=== PATIENT | male | born 1995 | race Caucasian/White ===

== ENCOUNTER 2022-01-17 18:03 | Emergency (ER) | payer BC, SELFPAY ==
[2022-01-17 18:55] VITALS: BP 141/71; PULSE 84; RESP 18; TEMP 36.7; O2SAT 99; BMI 40.7
[2022-01-17 19:30] LABS: Basophils Absolute Auto 0.03 K/uL (0.00-0.30); Basophils Percent Auto 0.4 % (0.0-3.0); Eosinophils Absolute Auto 0.12 K/uL (0.00-0.50); Eosinophils Percent Auto 1.4 % (0.0-7.0); Hematocrit 43.5 % (37.0-53.0); Hemoglobin* 14.9 gm/dL (13.5-17.5); Immature Granulocytes Abs Auto 0.01 K/uL (0.00-0.30); Lymphocytes Absolute Auto 1.87 K/uL (0.90-2.90); Lymphocytes Percent Auto 22.1 % (20-44); Mean Corpuscular HGB Conc 34 gm/dL (32-36); Mean Corpuscular Hemoglobin 29 pg (26-34); Mean Corpuscular Volume 85 fL (80-100); Monocytes Percent Auto 6.2 % (0.0-11.0); Neutrophils Percent Auto 69.8 % (42.0-72.0); Platelet Count* 169 K/uL (140-440); RDW Coefficient of Variation % 12.4 % (11.5-15.5); Red Blood Count 5.15 m/uL (4.30-5.90); White Blood Count* 8.45 K/uL (4.50-11.00)
[2022-01-17] MEDS: 0.9 % SODIUM CHLORIDE 1000 ml 1,000 ML IV (19:30)
[2022-01-17 19:37] LABS: Slide Review Reflex No
[2022-01-17 19:43] LABS: Albumin* 4.7 g/dL (3.3-5.0); Chloride* 104 mmol/L (96-114)
[2022-01-17 19:44] LABS: Potassium* 3.8 mmol/L (3.6-5.1); Sodium* 139 mmol/L (135-149)
[2022-01-17 19:46] LABS: Amylase* 59 U/L (18-89); Bilirubin Direct* 0.1 mg/dL (0.0-0.5); Bilirubin Total* 0.8 mg/dL (0.1-1.5); Carbon Dioxide* 24 mmol/L (20-32); Est. Creatinine Clearance* 125.02; Estimated Glomerular Filt Rate 108 ml/min; Total Protein* 7.7 g/dL (6.0-8.3)
[2022-01-17 19:47] LABS: Alanine Aminotransferase* 36 U/L (4-50); Alkaline Phosphatase* 95 U/L (40-150); Aspartate Amino Transferase* 24 U/L (12-35); Blood Urea Nitrogen* 16 mg/dL (5-24); Calcium* 9.2 mg/dL (8.4-10.6); Glucose* 104 mg/dL (60-115); Lipase* 77 U/L (23-300)
[2022-01-17 19:49] LABS: C Reactive Protein* 4.7 mg/dL (0.5-1.0)
--- NOTE | 2022-01-17 20:01 | ED.ABDPAIN ---
HPI - Abdominal Pain General Date Seen: 01/17/22 Chief Complaint: Unspecified Complaint, Adult Stated Complaint: TIGHTNESS IN CHEST,BACK PAIN,STOMACH PAIN Time Seen by Provider: 01/17/22 18:57 Source: patient and family Mode of arrival: ambulatory Limitations: no limitations History of Present Illness HPI narrative: Patient is delightful 26-year-old gentleman who presents here with abdominal pain. It comes and goes, intermittent, sometimes goes to his back, describes through his whole abdomen, and feels unwell. Currently really does not have any pain at all, but is here more at the prompting of his mother. Denies any diarrhea, if anything is been a little bit more constipated, no dysuria frequency, been a little bit nauseous when it is at its were thin seems to be related to eating some food. He noted it came on approximately 4 days ago, after he had a large caffeinated beverage in a fatty food. Since then it has been up and down he has not really been drinking any alcohol, and does not really drink a lot alcohol, is really cut down his caffeinated intake, and tried some Pepto-Bismol along with 1 dose of omeprazole. Family history of biliary colic, with his mom a at a young age have to have her gallbladder taken out. MD elicited complaint: abdominal pain Pertinent past history: none Onset (ago): day(s) Pain Consistency: intermittent and now resolved Location: diffuse Severity: moderate Quality: cramping and fullness Radiation: back Migration to: no migration Exacerbating factors: eating Relieving factors: nothing Associated symptoms: denies other symptoms Treatments prior to arrival: antacids Related Data Home Medications Medication Instructions Recorded Confirmed No Known Home Medications 01/17/22 01/17/22 Allergies Allergy/AdvReac Type Severity Reaction Status Date / Time No Known Drug Allergies Allergy Verified 01/17/22 19:34 Review of Systems Status of ROS Reports: 10 or more systems reviewed and unremarkable except as noted in History and below [facility] Medical History No significant past medical history Surgical History No significant past surgical history Social History Smoking Status: Never smoker Do you use any of these nicotine containing products: None Second hand tobacco smoke exposure: No How often do you have a drink containing alcohol: never How often do you have six or more drinks on one occasion: Never AUDIT-C Alcohol total score: 0 Non-prescribed substance use: denies use Exam Narrative: Exam Narrative: Patient is a very nice gentleman in no apparent distress, vital signs are reviewed, he is nontoxic in nature, TMs are normal bilaterally his oropharynx is normal is pupils equal round reactive to light and there is no scleral icterus noted on examination. Neck is supple, no meningismus, chest is clear by with no wheezing crackles noted, easy respirations with no splinting, heart sounds are normal, abdomen is entirely soft there is no guarding no past splenomegaly bowel sounds are normal, no CVA tenderness, negative Vivas sign, no right lower quadrant tenderness, no groin all tenderness, and normal male genitalia is appreciated skin reveals no petechiae or rashes, he moves all extremities independently and well, with normal power upper and lower, symmetrically normal. Const: Vital Signs, click to edit/add: Vital Signs - 24 hr 01/17/22 18:55 01/17/22 18:55 01/17/22 21:13 Temperature 98.0 F 98.0 F Pulse Rate [Right Pulse Oximeter] 84 79 Respiratory Rate 18 18 Respiratory Rate [ Back] 18 Respiratory Rate [ Chest] 18 Blood Pressure [Ri ght Upper Arm] 141/71 H 135/71 Pulse Oximetry 99 99 Oxygen Delivery Me thod Room Air Room Air 01/17/22 21:14 Temperature 98.0 F Pulse Rate [Right Pulse Oximeter] 79 Respiratory Rate 18 Respiratory Rate [ Back] Respiratory Rate [ Chest] Blood Pressure [Ri ght Upper Arm] 135/71 Pulse Oximetry Oxygen Delivery Me thod Documenting provider has reviewed patient's vital signs: yes Course Course Hospital Course: I discussed with coli did not see any evidence of a gallstone on my examination but he has a tough ultrasound due to his size. I think we can order an outpatient ultrasound, send the results to Dr. Kaur, who I think would be a good fit for him. Dr. Kaur does not have anything to after further at we will start him on Prilosec and they can consider doing endoscopy if he is ongoing symptoms. I am reassured by today's examination he is having absolutely no pain in his laboratory tests were also very reassuring. I through think that this is related to his gallbladder however possibly peptic ulcer type disease. I encouraged him to avoid caffeinated beverages, NSAIDs, and also alcohol Vital Signs Vital signs: Initial Vital Signs Temperature 98.0 F 01/17/22 18:55 Temperature Source Temporal Artery Scan 01/17/22 18:55 Pulse Rate 84 01/17/22 18:55 Respiratory Rate 18 01/17/22 18:55 Blood Pressure 141/71 H 01/17/22 18:55 Blood Pressure Mean 94 01/17/22 18:55 Blood Pressure Position Sitting 01/17/22 18:55 Pulse Oximetry 99 01/17/22 18:55 Oxygen Delivery Method 01/17/22 18:55 Vital Signs Temperature 98.0 F 01/17/22 18:55 Pulse Rate 84 01/17/22 18:55 Respiratory Rate 18 01/17/22 18:55 Blood Pressure 141/71 H 01/17/22 18:55 Pulse Oximetry 99 01/17/22 18:55 Oxygen Delivery Method 01/17/22 18:55 Temperature 98.0 F 01/17/22 21:14 Pulse Rate 79 01/17/22 21:14 Respiratory Rate 18 01/17/22 21:14 Blood Pressure 135/71 01/17/22 21:14 Pulse Oximetry 99 01/17/22 21:13 Oxygen Delivery Method 01/17/22 21:13 MDM - Abdominal Pain MDM Narrative Medical decision making narrative: During this evaluation of this patient I considered multiple differential diagnosis is which included the life-threatening such as appendicitis, aortic aneurysm, mesenteric ischemia, bowel perforation, volvulus, and bowel obstruction. Other differential diagnosis is include but are not limited to cholecystitis, pancreatitis, hepatitis, gastritis, GERD, diverticulitis, peptic ulcer disease, pyelonephritis/UTI, renal colic/stone, testicular torsion as well as other acute scrotal processes, inflammatory bowel disease, as well as other etiologies Differential Diagnosis Differential diagnosis: Likely abdominal pain, acute appendicitis, calculus of kidney and small bowel obstruction Medical Records Attestation: I reviewed the patient's medical records. Lab Data Attestation: I reviewed the patient's lab results. Labs: Lab Results 01/17/22 01/17/22 01/17/22 Range/Units 19:25 19:27 19:27 WBC 8.45 (4.50-11.00) K/uL RBC 5.15 (4.30-5.90) m/uL Hgb 14.9 (13.5-17.5) gm/dL Hct 43.5 (37.0-53.0) % MCV 85 (80-100) fL MCH 29 (26-34) pg MCHC 34 (32-36) gm/dL RDW Coeff of Kin 12.4 (11.5-15.5) % Plt Count 169 (140-440) K/uL Neut % (Auto) 69.8 (42.0-72.0) % Lymph % (Auto) 22.1 (20-44) % [place] % (Auto) 6.2 (0.0-11.0) % Eos % (Auto) 1.4 (0.0-7.0) % Baso % (Auto) 0.4 (0.0-3.0) % Neut # (Auto) 5.90 (1.7-7.0) K/uL Lymph # (Auto) 1.87 (0.90-2.90) K/uL [place] # (Auto) 0.50 (0.00-0.90) K/UL Eos # (Auto) 0.12 (0.00-0.50) K/uL Baso # (Auto) 0.03 (0.00-0.30) K/uL Abs Immat Gran (auto) 0.01 (0.00-0.30) K/uL Sodium 139 (135-149) mmol/L Potassium 3.8 (3.6-5.1) mmol/L Chloride 104 (96-114) mmol/L Carbon Dioxide 24 (20-32) mmol/L BUN 16 (5-24) mg/dL Creatinine 1.0 (0.5-1.5) mg/dL Estimated Creat Clear 125.02 Estimated GFR 108 ml/min Glucose 104 (60-115) mg/dL Calcium 9.2 (8.4-10.6) mg/dL Total Bilirubin 0.8 (0.1-1.5) mg/dL Direct Bilirubin 0.1 (0.0-0.5) mg/dL AST 24 (12-35) U/L ALT 36 (4-50) U/L Alkaline Phosphatase 95 (40-150) U/L C-Reactive Protein 4.7 H (0.5-1.0) mg/dL Total Protein 7.7 (6.0-8.3) g/dL Albumin 4.7 (3.3-5.0) g/dL Amylase 59 (18-89) U/L Lipase 77 (23-300) U/L Urine Color (Yellow) Urine Appearance (Clear) Urine pH (5.0-8.5) Ur Specific [place] (1.000-1.030) Urine Protein (Negative) Urine Glucose (UA) (Negative) Urine Ketones (Negative) Urine Blood (Negative) Urine Nitrite (Negative) Urine Bilirubin (Negative) Urine Urobilinogen (0.2-1.0) Ur Leukocyte Esterase (Negative) Urine RBC (0-2) Urine WBC (0-5) Ur Squamous Epith Cells (None-Few) Amorphous Sediment (None) Urine Bacteria (None) SARS-CoV-2 (PCR) (Negative) Influenza Type A (PCR) (Negative) Influenza Type B (PCR) (Negative) RSV (PCR) (Negative) POC Troponin I 0.00 L (0.01-0.04) ng/ml 01/17/22 01/17/22 Range/Units 19:27 20:12 WBC (4.50-11.00) K/uL RBC (4.30-5.90) m/uL Hgb (13.5-17.5) gm/dL Hct (37.0-53.0) % MCV (80-100) fL MCH (26-34) pg MCHC (32-36) gm/dL RDW Coeff of Kin (11.5-15.5) % Plt Count (140-440) K/uL Neut % (Auto) (42.0-72.0) % Lymph % (Auto) (20-44) % [place] % (Auto) (0.0-11.0) % Eos % (Auto) (0.0-7.0) % Baso % (Auto) (0.0-3.0) % Neut # (Auto) (1.7-7.0) K/uL Lymph # (Auto) (0.90-2.90) K/uL [place] # (Auto) (0.00-0.90) K/UL Eos # (Auto) (0.00-0.50) K/uL Baso # (Auto) (0.00-0.30) K/uL Abs Immat Gran (auto) (0.00-0.30) K/uL Sodium (135-149) mmol/L Potassium (3.6-5.1) mmol/L Chloride (96-114) mmol/L Carbon Dioxide (20-32) mmol/L BUN (5-24) mg/dL Creatinine (0.5-1.5) mg/dL Estimated Creat Clear Estimated GFR ml/min Glucose (60-115) mg/dL Calcium (8.4-10.6) mg/dL Total Bilirubin (0.1-1.5) mg/dL Direct Bilirubin (0.0-0.5) mg/dL AST (12-35) U/L ALT (4-50) U/L Alkaline Phosphatase (40-150) U/L C-Reactive Protein (0.5-1.0) mg/dL Total Protein (6.0-8.3) g/dL Albumin (3.3-5.0) g/dL Amylase (18-89) U/L Lipase (23-300) U/L Urine Color Yellow (Yellow) Urine Appearance Cloudy A (Clear) Urine pH 5.5 (5.0-8.5) Ur Specific [place] >= 1.030 (1.000-1.030) Urine Protein Negative (Negative) Urine Glucose (UA) Negative (Negative) Urine Ketones 1+ A (Negative) Urine Blood Negative (Negative) Urine Nitrite Negative (Negative) Urine Bilirubin 1+ A (Negative) Urine Urobilinogen 1.0 (0.2-1.0) Ur Leukocyte Esterase Negative (Negative) Urine RBC 0-2 (0-2) Urine WBC 0-2 (0-5) Ur Squamous Epith Cells None (None-Few) Amorphous Sediment Moderate A (None) Urine Bacteria None (None) SARS-CoV-2 (PCR) Negative SARS-CoV-2 (Negative) Influenza Type A (PCR) Negative PCR FLU A (Negative) Influenza Type B (PCR) Negative PCR FLU B (Negative) RSV (PCR) Negative PCR RSV (Negative) POC Troponin I (0.01-0.04) ng/ml ECG Data Attestation: I personally reviewed and interpreted this ECG as follows: ECG interpretation date: 01/17/22 Prior ECG tracings: not available for review Interpretation: Normal sinus rhythm with a ventricular rate of 91, no acute ST wave changes, QRS QT WV interval normal, there was an incomplete right bundle-branch block. Assessment: Normal EKG no acute ST wave changes. Discharge Plan Discharge Clinical Impression: Abdominal pain Patient Disposition: Home w/ Parent or Adult Condition: Improved Instructions: Abdominal Pain (ED) Additional Instructions: Home rest light fat-free diet, clear fluids, times 24 hours then increased. Would recommend that you take the omeprazole 20 mg a day, high but this a [employer] were [facility]. Take it for 3 weeks at a minimum. Follow-up with Dr. Kaur for your results of your ultrasound. And any further care. Call [phone] if no call by 11:00 in the morning He is an excellent doctor, increasing abdominal pain fevers chills and I would like you to come back to the emergency room to be res seen. Prescriptions: No Action No Known Home Medications Follow Up/Referrals: Rip Kaur MD [Staff Physician] - Provider,Not a Local [Primary Care Provider] - Stand Alone Forms: [employer] Info Instructions
[2022-01-17 20:08] LABS: PCR FLU A Negative PCR FLU A (Negative); PCR FLU B Negative PCR FLU B (Negative); PCR RSV Negative PCR RSV (Negative)
[2022-01-17 20:25] LABS: Appearance Urine Cloudy (Clear); Bilirubin Urine 1+ (Negative); Blood Urine Negative (Negative); Color Urine Yellow (Yellow); Glucose Urine Negative (Negative); Ketones Urine 1+ (Negative); Leukocyte Esterase Urine Negative (Negative); Nitrite Urine Negative (Negative); Protein Urine Negative (Negative); Specific Gravity Urine >= 1.030 (1.000-1.030); pH Urine 5.5 (5.0-8.5)
[2022-01-17 20:42] LABS: Amorphous Sediment Urine Moderate; RBC Urine 0-2 (0-2); WBC Urine 0-2 (0-5)
[2022-01-17] MEDS: PANTOPRAZOLE SODIUM 40 MG INJ IVP (20:51)
[2022-01-17 21:13] VITALS: BP 135/71; PULSE 79; RESP 18; TEMP 36.7; O2SAT 99
[2022-01-17 21:14] VITALS: BP 135/71; PULSE 79; RESP 18; TEMP 36.7
[2022-01-17 23:33] LABS: SARS PCR* Negative SARS-CoV-2 (Negative)
== END 2022-01-17 21:14 | disposition home or self-care (01) ==
PROVIDERS: Emergency Provider Family Medicine; PCP Family Medicine
DX: R10.84 Generalized abdominal pain (principal)
CPT/HCPCS: 36415; 80048; 80076; 81001; 82150; 83690; 84484; 85025; 86140; 87502; 87634; 87635; 93005; 96361; 96374; 99284; C9113; J7030

== ENCOUNTER 2022-01-18 10:59 | Outpatient (CLI) | payer BC, SELFPAY ==
--- NOTE | 2022-01-18 11:15 | CRLHL7_ITS ---
For Patients: As a result of the Century Cures Act, medical imaging exams and procedure reports are released immediately into your electronic medical record. You may view this report before your referring provider. If you have questions, please contact your health care provider. INDICATION: Biliary following COMPARISON: none TECHNIQUE: Real time odonnell scale imaging and color Doppler analysis was performed of the right upper quadrant. FINDINGS: The patient`s liver is of normal size and has uniform echogenicity. There is a normal appearance of the hepatic IVC and proximal abdominal aorta. There is no evidence of ascites. Gallbladder wall is thickened and measures 5 millimeters. Moderate layering sludge noted. Echogenic stone located within the gallbladder neck measuring 8 millimeters. The common bile duct is of normal size and measures 8 mm in diameter at the level of the tony hepatis. The pancreas appears mildly edematous. There is no evidence of a stone or hydronephrosis within the right kidney. The right kidney measures 12.8 cm in length. IMPRESSION: Moderate layering sludge in the gallbladder and 8 millimeter stone in the gallbladder neck along with gallbladder wall thickening suggesting acute cholecystitis. Dictated by Rip Barnett MD @ 01/18/2022 11:53:36 AM (Electronically Signed)
== END 2022-01-18 11:00 | disposition home or self-care (01) ==
LOC: US 11:00
PROVIDERS: PCP Family Medicine; Visit Provider Family Medicine
DX: K80.50 Calculus of bile duct without cholangitis or cholecystitis without obstruction (principal)
CPT/HCPCS: 76705

== ENCOUNTER 2022-01-18 12:15 | Day surgery (SDC) | payer BC, SELFPAY ==
[2022-01-18] VITALS (18 sets, daily range): BP systolic 107–151; BP diastolic 58–86; PULSE 80–96; RESP 14–20; TEMP 36.6–37.6; O2SAT 90–99; BMI 37.5
[2022-01-18 13:21] LABS: Basophils Absolute Auto 0.02 K/uL (0.00-0.30); Basophils Percent Auto 0.2 % (0.0-3.0); Eosinophils Percent Auto 1.1 % (0.0-7.0); Hemoglobin* 15.1 gm/dL (13.5-17.5); Immature Granulocytes Abs Auto 0.02 K/uL (0.00-0.30); Lymphocytes Percent Auto 15.3 % (20-44); Mean Corpuscular HGB Conc 34 gm/dL (32-36); Mean Corpuscular Hemoglobin 29 pg (26-34); Mean Corpuscular Volume 84 fL (80-100); Monocytes Percent Auto 6.9 % (0.0-11.0); Neutrophils Percent Auto 76.3 % (42.0-72.0); Platelet Count* 170 K/uL (140-440); RDW Coefficient of Variation % 12.3 % (11.5-15.5); Red Blood Count 5.24 m/uL (4.30-5.90); White Blood Count* 9.44 K/uL (4.50-11.00)
[2022-01-18] MEDS: LACTATED RINGERS 1000 ML 1,000 ML 100 ML IV (13:25)
[2022-01-18] MEDS: SODIUM CHLORIDE 0.9 % (FLUSH) 10 ML SYRINGE IVF (13:25)
[2022-01-18 13:26] LABS: Slide Review Reflex No
[2022-01-18] MEDS: ETHYL CHLORIDE 1 APPLICATION 1 APPLIC TOPICAL (13:26)
[2022-01-18 13:27] LABS: Albumin* 4.5 g/dL (3.3-5.0); Chloride* 101 mmol/L (96-114); Potassium* 4.2 mmol/L (3.6-5.1); Sodium* 138 mmol/L (135-149)
[2022-01-18 13:29] LABS: Amylase* 53 U/L (18-89); Carbon Dioxide* 26 mmol/L (20-32); Est. Creatinine Clearance* 136.14; Estimated Glomerular Filt Rate 108 ml/min
[2022-01-18 13:30] LABS: Alanine Aminotransferase* 32 U/L (4-50); Alkaline Phosphatase* 86 U/L (40-150); Aspartate Amino Transferase* 22 U/L (12-35); Bilirubin Direct* 0.2 mg/dL (0.0-0.5); Bilirubin Total* 1.4 mg/dL (0.1-1.5); Blood Urea Nitrogen* 12 mg/dL (5-24); Calcium* 9.1 mg/dL (8.4-10.6); Glucose* 108 mg/dL (60-115); Lipase* 47 U/L (23-300); Total Protein* 7.5 g/dL (6.0-8.3)
--- NOTE | 2022-01-18 13:33 | P.GSCN_ITS ---
History of Present Illness Consult details Date Seen: 01/18/22 Consult date: 01/18/22 Narrative: Patient presented to the emergency department last night for persistent epigastric abdominal pain. He states that it started on Friday evening after a large dinner. He has never had the pain before this event. It was associated with nausea and multiple emesis. On Friday he felt fatigued, within the pain partially subsided throughout the week. He had another episode of pain on Friday after a big steak dinner and beers. He describes the pain as being in the middle of his abdomen with some radiation to the back. Large meal seem to make the pain worse. Advil makes the pain better. He denies any fevers or chills. No diarrhea, but does report some mild constipation. He thinks his last bowel movement was yesterday. He has never had abdominal surgery before. There is a family history of gallbladder disease with his mom having hers removed in her 20's. Review of Systems Status of ROS: Reports: 10 or more systems reviewed and unremarkable except as noted in History and below [facility] Medical History No significant past medical history Surgical History No significant past surgical history Social History Smoking Status: Never smoker Do you use any of these nicotine containing products: None Second hand tobacco smoke exposure: No How often do you have a drink containing alcohol: monthly or less How often do you have six or more drinks on one occasion: Never AUDIT-C Alcohol total score: 1 Non-prescribed substance use: denies use Caffeine: Yes Meds Home Medications and Allergies Home Medications Medication Instructions Recorded Confirmed Type No Known Home Medications 01/17/22 01/17/22 History Allergies Allergy/AdvReac Type Severity Reaction Status Date / Time No Known Drug Allergies Allergy Verified 01/18/22 12:45 Exam Narrative: Exam Narrative: General: Alert and oriented, no acute distress. Respiratory: Equal breath rise bilaterally, maintained on room air. CV: Regular rhythm rate, well perfused Abdomen: Soft, mild tenderness to deep palpation with no guarding or rebound. Const: Vital Signs, click to edit/add: Vital Signs - 24 hr 01/18/22 12:56 Temperature 97.9 F Pulse Rate 88 Respiratory Rate 18 Blood Pressure 145/86 H Pulse Oximetry 99 Oxygen Delivery Me thod Room Air Results Labs Labs: Abnormal lab results 01/18/22 Range/Units 13:10 Neut % (Auto) 76.3 H (42.0-72.0) % Lymph % (Auto) 15.3 L (20-44) % Neut # (Auto) 7.20 H (1.7-7.0) K/uL Diabetes panel 01/18/22 Range/Units 13:10 Sodium 138 (135-149) mmol/L Potassium 4.2 (3.6-5.1) mmol/L Chloride 101 (96-114) mmol/L Carbon Dioxide 26 (20-32) mmol/L BUN 12 (5-24) mg/dL Creatinine 1.0 (0.5-1.5) mg/dL Glucose 108 (60-115) mg/dL Calcium 9.1 (8.4-10.6) mg/dL AST 22 (12-35) U/L ALT 32 (4-50) U/L Alkaline Phosphatase 86 (40-150) U/L Total Protein 7.5 (6.0-8.3) g/dL Albumin 4.5 (3.3-5.0) g/dL Calcium panel 01/18/22 Range/Units 13:10 Calcium 9.1 (8.4-10.6) mg/dL Albumin 4.5 (3.3-5.0) g/dL Pituitary panel 01/18/22 Range/Units 13:10 Sodium 138 (135-149) mmol/L Potassium 4.2 (3.6-5.1) mmol/L Chloride 101 (96-114) mmol/L Carbon Dioxide 26 (20-32) mmol/L BUN 12 (5-24) mg/dL Creatinine 1.0 (0.5-1.5) mg/dL Glucose 108 (60-115) mg/dL Calcium 9.1 (8.4-10.6) mg/dL Adrenal panel 01/18/22 Range/Units 13:10 Sodium 138 (135-149) mmol/L Potassium 4.2 (3.6-5.1) mmol/L Chloride 101 (96-114) mmol/L Carbon Dioxide 26 (20-32) mmol/L BUN 12 (5-24) mg/dL Creatinine 1.0 (0.5-1.5) mg/dL Glucose 108 (60-115) mg/dL Calcium 9.1 (8.4-10.6) mg/dL Total Bilirubin 1.4 (0.1-1.5) mg/dL AST 22 (12-35) U/L ALT 32 (4-50) U/L Alkaline Phosphatase 86 (40-150) U/L Total Protein 7.5 (6.0-8.3) g/dL Albumin 4.5 (3.3-5.0) g/dL All other labs normal. Imaging Abdominal ultrasound report/results: report reviewed and image reviewed Assessment and Plan Assessment and plan (1) Acute cholecystitis: Status: Acute Plan Patient is an otherwise healthy 26-year-old male presents with clinical findings and workup consistent with acute cholecystitis. On ultrasound imaging there is an edematous gallbladder wall and stone that appears lodged within the gallbladder neck. Labs are all within normal limits, including bilirubin and lipase. Low concern at this time for choledocholithiasis or associated pancreatitis. I had a detailed conversation with the patient regarding the diagnosis of acute cholecystitis. We discussed the treatment options including observation with diet modification and laparoscopic cholecystectomy. We discussed the risks of surgery (including but not limited to) the risks of bleeding, infection, injury to other structures in the abdomen including bile duct injury, bile leak and conversion to an open operation. We discussed the possibility that the patient's pain not improve with surgery. We discussed the possibility of permanent post-operative diarrhea that may require medical management. Additionally, the conceivably of complications requiring additional surgery or further hospitalization were also discussed including the risks of RI, respiratory failure, stroke and blood clots. The patient voiced an understanding of our conversation, had the opportunity to ask questions, agreed to accept the risks of surgery and asked that we proceed with surgery.
[2022-01-18] MEDS: BUPIVACAINE 0.5% 30 ML INJECTION (17:03)
--- NOTE | 2022-01-18 17:22 | P.GSOP_ITS ---
Operative Note Date of procedure: 01/18/22 Type of Procedure: Laparoscopic cholecystectomy Procedure Description: After discussing the risks and benefits of the procedure, the patient signed informed consent.? The operative site was marked and the patient was brought to the operating room and placed on the operating table in supine position.? Care was taken to pad the patient's pressure points.?? The patient was then intubated by anesthesia.?? The operative site was then prepped and draped in the usual sterile fashion.? A time-out was then performed. Entrance to the abdomen was gained via a 5 mm Visiport in the left upper quadrant. The abdomen was insufflated and briefly surveyed for signs of injury. There was none. 11 mm umbilical port was placed as well as 2 working ports along the right costal margin. Patient was then placed in reverse Trendelenburg position with the right side up. The gallbladder had a significant amount of omental adhesions and was difficult to visualize. These were bluntly dissected down in the fundus visualized. The fundus was hemorrhagic, distended, edematous and difficult to grasp. A laparoscopic needle was brought onto the field and 70 mL of clear mucus fluid removed. Findings were consistent with hydrops. Once t he fluid was removed the fundus was grasped and retracted cephalad. There was a significant amount of omental adhesions that were needed to be dissected away and freed from the gallbladder. Additionally, at the infundibulum the duodenum was adhered with inflammatory attachments. These were carefully dissected away, taking care not to injure the associated duodenum. Once the duodenum was swept away the infundibulum was grasped. This was made very difficult secondary to the edematous and hemorrhagic tissue. Portions of the gallbladder also appeared partially necrotic. The gallbladder infundibulum itself was retracted into the liver bed and towards the falciform. Cautery was used to incise the surrounding peritoneum, which was bluntly dissected down. This allowed the infundibulum to be grasped and retracted. A significant amount of blunt dissection was used to identify the cystic duct and artery. There was a thick inflammatory rind that was carefully peeled away. The cystic artery was circumferentially dissected out. Just inferior to that was the cystic duct, which was also circumferentially dissected out with blunt dissection and cautery. The gallbladder was dissected off the cystic plate to achieve the critical view. Once this was achieved the cystic duct and artery were each clipped with 2 clips proximally and 1 clip distally and transected with the scissors. The gallbladder was then taken off of the liver bed. There was a point of arterial bleeding from the liver bed that was encountered. This was controlled with 5 mm clips. Once the gallbladder was completely taken off the liver bed it was removed from the abdomen using an Endo-Catch bag. The gallbladder bed was surveyed for hemostasis. The ports were then removed under direct vision. The umbilical port fascia was closed with 0 Vicryl. The skin was closed with absorbable subcuticular suture. Instrument sponge and needle counts were correct at the end of the case. The patient was then woken and transferred to the PACU in stable condition. Findings: Hydrops of the gallbladder with associated necrosis. Modifier 22 added to the case secondary to difficulty. Anesthesia: GETA Surgeon: Flor Connell MD Estimated blood loss (mL): 100 Condition: stable Disposition: PACU
--- NOTE | 2022-01-18 17:53 | W.ANESCHARGE ---
Anesthesia Charges Start Date/Time Anesthesia Start Date: 01/18/22 Anesthesia Start Time: 13:54 Stop Date/Time Anesthesia Stop Date: 01/18/22 Anesthesia Stop Time: 17:25 Summary Emergency: Yes
[2022-01-18] MEDS: LACTATED RINGERS 1000 ML 1,000 ML 125 ML IV (20:11)
[2022-01-18] MEDS: KETOROLAC 15 MG/ML inj IVP (23:22)
[2022-01-19] VITALS: BP 123/71; PULSE 89; RESP 18; TEMP 36.9; O2SAT 97
[2022-01-19 03:00] VITALS: BP 119/60; PULSE 81; RESP 18; TEMP 36.8; O2SAT 99
[2022-01-19] MEDS: LACTATED RINGERS 1000 ML 1,000 ML 125 ML IV (03:03)
[2022-01-19] MEDS: OXYCODONE 5 MG TABLET PO ×2 (03:03→09:16)
--- NOTE | 2022-01-19 06:09 | PC.NURSE ---
Shift 7p-7a: Pt. AOx4, following commands, VSS on RA. Pt. ambulating w/o difficulty, ambulated w/ SBA to toilet, voiding well, UOP adequate. Pt. received PRN Toradol and oxycodone for pain management, rates pain 3/10 this morning. Pt. receiving LR @125mL/hr, SCD's in place, pt. using IS independently when awake. Abdominal lap sites x4 C/D/I with surgical glue. Plan for mobility today with more ambulation. Pt. tolerated snacks w/o N/V, advanced diet to regular this AM. No complaints/issues at this time, pt. is resting comfortably
[2022-01-19 08:30] VITALS: BP 132/78; PULSE 83; RESP 18; TEMP 37; O2SAT 98
[2022-01-19 09:00] VITALS: PULSE 83; RESP 18
--- NOTE | 2022-01-19 10:45 | PM.DS1 ---
DS: Providers Provider Date Seen: 01/19/22 Primary care physician: Rip Kaur MD Attending Physician on discharge: Flor Connell MD DS: Summary Hospital Course Hospital Course: Patient presented to the emergency department with persistent right upper quadrant abdominal pain. Workup was obtained with clinical symptoms and findings consistent with acute cholecystitis. Patient underwent laparoscopic cholecystectomy and did well postoperatively. On postop day 1 he was tolerating regular diet, pain was well controlled and he was ambulating independently. Status at Discharge Functional status at discharge: independent ambulation Overall status at discharge: patient is progressing back to baseline Time Spent with Patient Time attestation: Total time spent providing and/or coordinating discharge services: Exam Narrative: Exam Narrative: General: Alert and oriented, no acute distress. Nontoxic in appearance. Respiratory: Equal breath rise bilaterally, maintained on room air CV: Regular rhythm rate Abdomen: Soft, nondistended, appropriately tender over incision sites. Const: Vital Signs, click to edit/add: Vital Signs - 24 hr 01/18/22 12:56 01/18/22 17:22 01/18/22 17:25 Temperature 97.9 F 99.7 F H 99.7 F H Pulse Rate 88 92 96 Pulse Rate [Pulse Oximeter] Respiratory Rate 18 19 15 Blood Pressure 145/86 H 131/74 124/74 Blood Pressure [Le ft Arm] Pulse Oximetry 99 94 91 Oxygen Delivery Me thod Room Air Room Air 01/18/22 17:30 01/18/22 17:35 01/18/22 17:40 Temperature 99.7 F H 99.7 F H 99.7 F H Pulse Rate 82 95 93 Pulse Rate [Pulse Oximeter] Respiratory Rate 18 14 20 Blood Pressure 123/58 L 121/71 135/71 Blood Pressure [Le ft Arm] Pulse Oximetry 90 95 95 Oxygen Delivery Me thod 01/18/22 17:45 01/18/22 17:50 01/18/22 18:00 Temperature 99.7 F H 99 F 98.4 F Pulse Rate 87 88 80 Pulse Rate [Pulse Oximeter] Respiratory Rate 14 16 18 Blood Pressure 143/79 H 151/64 H Blood Pressure [Le ft Arm] 126/74 Pulse Oximetry 95 96 Oxygen Delivery Me thod Room Air 01/18/22 17:21 01/18/22 18:15 01/18/22 19:00 Temperature 97.9 F 97.9 F 97.8 F Pulse Rate Pulse Rate [Pulse Oximeter] Respiratory Rate 18 18 18 Blood Pressure Blood Pressure [Le ft Arm] 120/63 127/61 115/78 Pulse Oximetry 93 97 95 Oxygen Delivery Me thod Room Air Room Air Room Air 01/18/22 18:45 01/18/22 19:30 01/18/22 19:00 Temperature 98 F 98.6 F 98.6 F Pulse Rate Pulse Rate [Pulse Oximeter] 81 81 Respiratory Rate 18 18 18 Blood Pressure Blood Pressure [Le ft Arm] 122/61 123/69 123/69 Pulse Oximetry 97 97 97 Oxygen Delivery Me thod Room Air Room Air Room Air 01/18/22 23:00 01/18/22 20:00 01/18/22 21:00 Temperature 98.6 F 98.4 F Pulse Rate Pulse Rate [Pulse Oximeter] 91 90 90 Respiratory Rate 18 18 18 Blood Pressure Blood Pressure [Le ft Arm] 126/73 107/62 Pulse Oximetry 96 97 Oxygen Delivery Me od Room Air Room Air 01/18/22 23:53 01/18/22 23:00 01/18/22 23:00 Temperature 98.4 F 98.7 F 98.7 F Pulse Rate Pulse Rate [Pulse Oximeter] 94 87 87 Respiratory Rate 18 18 18 Blood Pressure Blood Pressure [Le ft Arm] 126/70 128/74 128/74 Pulse Oximetry 98 97 97 Oxygen Delivery Me od Room Air Room Air Room Air 01/19/22 00:00 01/19/22 03:00 01/19/22 08:30 Temperature 98.4 F 98.3 F 98.6 F Pulse Rate Pulse Rate [Pulse Oximeter] 89 81 83 Respiratory Rate 18 18 18 Blood Pressure Blood Pressure [Le ft Arm] 123/71 119/60 132/78 Pulse Oximetry 97 99 98 Oxygen Delivery Pa thod Room Air Room Air Room Air DS: Data Data Completed and Pending Labs on day of discharge: Labs from last 24 hours 01/18/22 01/18/22 13:10 13:10 WBC 9.44 RBC 5.24 Hgb 15.1 Hct 44.0 MCV 84 MCH 29 MCHC 34 RDW Coeff of Kin 12.3 Plt Count 170 Neut % (Auto) 76.3 H Lymph % (Auto) 15.3 L [place] % (Auto) 6.9 Eos % (Auto) 1.1 Baso % (Auto) 0.2 Neut # (Auto) 7.20 H Lymph # (Auto) 1.40 [place] # (Auto) 0.70 Eos # (Auto) 0.10 Baso # (Auto) 0.02 Abs Immat Gran (auto) 0.02 Sodium 138 Potassium 4.2 Chloride 101 Carbon Dioxide 26 BUN 12 Creatinine 1.0 Estimated Creat Clear 136.14 Estimated GFR 108 Glucose 108 Calcium 9.1 Total Bilirubin 1.4 Direct Bilirubin 0.2 AST 22 ALT 32 Alkaline Phosphatase 86 Total Protein 7.5 Albumin 4.5 Amylase 53 Lipase 47 Discharge Plan Discharge Disposition: Home, Self-Care Discharging Surgeon: Flor Connell Follow-Up Appointment: 2 week follow-up Prescriptions: New oxycodone 5 mg tablet 5 mg PO Q6H PRN (Reason: pain) Qty: 15 0RF senna 8.6 mg capsule 8.6 mg PO DAILY PRN (Reason: constipation) Qty: 90 0RF Rx Instructions: Please take stool softeners while on narcotic pain medicine. Stop if having greater than 2 bowel movements per day. Activity Level: Activity as Tolerated Activity Detail: Activity as tolerated. Avoid strenuous activity. No lifting greater than 20 lb for 2 weeks. Discharge Diet: Regular and Low Fat/Low Cholesterol Diet Detail: Low-fat Patient Instructions: Laxative, Stimulant (By mouth), Oxycodone, Rapid Release (By mouth), Surgical Site Infections (DC), General Anesthesia (DC), Laparoscopic Cholecystectomy (DC), Post-Operative Instructions: Laparoscopic Cholecystectomy Additional Instructions: Okay to shower starting tomorrow, no swimming in a pool or bathing for 2 weeks. Forms: Work/Release Restrictions Follow-up: Flor Connell MD [Staff Physician] - 01/28/22 2:30 pm (Post OP- with Dr. De Guzman one of [facility]) Rip Kaur MD [Primary Care Provider] - Discharge Orders: Discharge Order (Routine); Ordered 01/19/22 Ordered By: Flor Connell
--- NOTE | 2022-01-19 11:56 | PC.NURSE ---
VSS AND AFEBRILE. TOLERATING REGULAR DIET WITH NO C/O N/V. LAP SITES x4 INTACT. SL DC'D. REVIEWED DC INSTRUCTIONS WITH PATIENT AND HE DENIES ANY QUESTIONS OR CONCERNS. PATIENT DC'D HOME VIA FAMILY.
== END 2022-01-19 11:45 | disposition home or self-care (01) ==
LOC: OR 17:28 → MEDSURG 18:03
PROVIDERS: Family Medicine; PCP Family Medicine; Visit Provider Surgery
PROC: 0FT44ZZ Resection of Gallbladder, Percutaneous Endoscopic Approach (ICD-10-PCS; CPT 47562; principal; 2022-01-18 12:45)
DX: K80.12 Calculus of gallbladder with acute and chronic cholecystitis without obstruction (principal); K82.1 Hydrops of gallbladder
CPT/HCPCS: 47562; 36415; 790; 80048; 80076; 82150; 83690; 85025; 88304; 99140; A9270; J1170; J1885; J2250; J2405; J2543; J2704; J3010; J3490; J7120

== ENCOUNTER 2024-05-01 20:32 | Emergency (ER) | payer BC, SELFPAY ==
--- OUTSIDE RECORDS SUMMARY | 2024-05-01 20:35 | XMS_ITS | Clinical Summary ---
Author Organization [facility] Address [address] [place] [address] [address] [place] [address] Care Team Providers Care Buzzsaw Operator Helper Name Role Phone Pcp, No MD Primary Care Provider Unavailabl e Provider, No Attributed RESOURCE Unavailable Unavailable Allergies No known active allergies Medications HYDROcodone-acet aminophen (NORCO) 5-325 mg tabletIndication s:Closed fracture of ankle, unspecified laterality, initial encounter Take 1-2 tablets by mouth every 4 to 6 hours as needed for moderate pain Not to exceed 10 tablets per day 20 tablet 9 Active Active Problems No known active problems Immunizations Immunization Administration Dates Next Due DTaP 01/18/2002, 9,02/09/1998,1997,0 1997 HIB,unspecified 1997 HIB-HEP B 02/09/1998,1997 MMR 01/18/2002,11/14/1998 Meningococcal MCV4P (Menactra) 08/10/2009 Meningococcal MPSV4 (Menomune) 08/10/2009 TDAP 12/25/2016,08/10/2009 Varicella 11/14/1998 Family History Medical History Relation Comments No Known Problems Father No Known Problems Mother No Known Problems Sister Relation Status Comments Father Alive Mother Alive Sister Alive Social History Tobacco Use Types Packs/Day Years Used Date Smoking Tobacco: Never Smokeless Tobacco: Never Alcohol Use Standard Drinks/Week Comments Yes 3 (1 standard drink = 0.6 oz pur e alcohol) PHQ-2 Answer Date Recorded PHQ-2 Score 0 08/06/2018 Sex and Gender Information Value Date Recorded Sex Assigned at Not on file Legal Sex Male 5:19 PM CDT Gender Identity Not on file Sexual Orientation Not on file Last Filed Vital Signs Vital Sign Reading Time Taken Comments Blood Pressure 126/75 08/21/2018 10:12 AM CDT Pulse 71 08/07/2018 1:00 PM CDT Temperature 36.2 C (97.1 F) 08/07/2018 1:00 PM CDT Respiratory Rate 16 08/07/2018 1:00 PM CDT Oxygen Saturation 96% 08/07/2018 1:00 PM CDT Inhaled Oxygen Concentration - - Weight 123.3 kg (271 lb 13.2 oz) 08/07/2018 9:25 AM CDT Height 190.5 cm (6' 3) 08/07/2018 9:25 AM CDT Body Mass Index 33.98 08/07/2018 9:25 AM CDT Plan of Treatment Health Maintenance Due Date Last Done Comments Hepatitis C Screening 1997 Hepatitis B Vaccine (3 of 3 - 3-dose series) 04/06/1998 02/09/1998, 1997 HIV One Time Screening Ages 15-65 2012 HPV Vaccine (1 - Male 3-dose series) 2012 Lipid Screening 2018 Covid-19 Vaccine (1 - 2023-2 5 season) 2023 Influenza Vaccine (#1) 2023 TDAP/TD VACCINE (3 - Td or Tdap) 12/25/2026 12/25/2016, 08/10/2009 Pneumococcal Vaccine (0-5yr; and At-risk 6-49yr) Aged Out No longer eligible b ased on patient's age to complete this topic Medical Devices Implanted Type Area Tow Bar Driver Device Identifier Shelf Expiration Date Model / Serial / Lot Screw Quirino Acum 3.5x12mm N Co-3120 Ea1 - [id number] Implanted:Qty: 1 on 08/07/2018 by Prince Gustafson MD at [facility] Left: ANKLE [employer]UMED CO-3120 / / Screw Quirino Acum 2.7x26mm N Co-2726 Ea1 - [id number] Implanted:Qty: 1 on 08/07/2018 by Prince Gustafson MD at [facility] Left: ANKLE [employer]UMED CO-2726 / / Screw Lk Quirino Acum 3.5x12mm N Col-3120 Ea1 - [id number] Implanted:Qty: 2 on 08/07/2018 by Prince Gustafson MD at [facility] Left: ANKLE ACUMED COL-3120 / / Screw Lk Quirino Acum 3.5x16mm N Col-3160 Ea1 - [id number] Implanted:Qty: 1 on 08/07/2018 by Prince Gustafson MD at [facility] Left: ANKLE ACUMED COL-3160 / / Screw Lk Quirino Acum 3.5x18mm N Col-3180 Ea1 - [id number] Implanted:Qty: 1 on 08/07/2018 by Prince Gustafson MD at [facility] Left: ANKLE ACUMED COL-3180 / / Plate Fib Lat Lk 9hl N 70-0169 Ea1 - [id number] Implanted:Qty: 1 on 08/07/2018 by Prince Gustafson MD at [facility] Left: ANKLE ACUMED 70-0169 / / Screw Cncls Acum 4x18mm N Ca-4180 Ea1 - [id number] Implanted:Qty: 1 on 08/07/2018 by Prince Gustafson MD at [facility] Left: ANKLE ACUMED CA-4180 / / Advance Directives For more information, please contact: [phone] * Full Code (Latest Code Status on File) Date Activated Date Inactivated Comments 08/07/2018 9:15 AM 08/07/2018 7:32 PM Care Teams Buzzsaw Operator Helper Relationship Specialty Start Date End Date PcpMaryann MD You have no PCP on file PCP - General 03/22/19 Provider, No Attributed, RESOURCE [address] PCP - Attributed Provider 11/19/20
[2024-05-01 20:40] VITALS: BP 145/89; PULSE 89; RESP 18; TEMP 36.7; O2SAT 99; BMI 36.2
--- NOTE | 2024-05-01 20:55 | ED.SKABFB ---
HPI - Skin/Abscess/Foreign Bdy General Time Seen by Provider: 20:55 Date Seen: 05/01/24 Chief complaint: Skin/Abscess/Foreign Body Stated complaint: Swallowed a walleye bone Time Seen by Provider: 05/01/24 20:54 Source: patient, family and RN notes reviewed Mode of arrival: ambulatory Limitations: no limitations History of Present Illness HPI narrative: Chang is a very pleasant 28-year-old gentleman who comes to the emergency room with his for evaluation of a foreign body sensation in the right side of his throat. Patient states that he had eaten a walleye sandwich at a local restaurant this evening. Few minutes after having finished he had a discomfort and foreign body sensation on the right side of his throat. He states that he feels like it is probably a bone from the fish. Since that time he tried to drink Coke and Sprite as well as gargle with mouthwash. Nothing seems to be helping. He is not having a hard time breathing. He has not taken any medications. He has not had any bleeding. Related Data Home Medications ?Medication ?Instructions ?Recorded ?Confirmed No Known Home Medications 05/01/24 05/01/24 Allergies Allergy/AdvReac Type Severity Reaction Status Date / Time No Known Drug Allergies Allergy Verified 05/01/24 20:42 Review of Systems Status of ROS: Reports: 6 or more systems reviewed and unremarkable except as noted in History and below [facility] Medical History No significant past medical history Surgical History No significant past surgical history Social History Smoking Status: Current some day smoker What tobacco products do you use: cigarettes Do you use any of these nicotine containing products: None Second hand tobacco smoke exposure: Yes How often do you have a drink containing alcohol: monthly or less How often do you have six or more drinks on one occasion: Never AUDIT-C Alcohol total score: 1 Non-prescribed substance use: denies use Caffeine: Yes Exam Narrative: Exam Narrative: Alert and oriented. Very pleasant well-spoken young man in no acute distress. Oral cavity shows moist mucous membranes. Examination of the oral cavity shows no evidence of foreign body. I do palpate anteriorly and laterally to the right tonsil. I am able to visualize posterior oropharynx on the right using mere after some Hurricaine spray and I do not note foreign body. No respiratory distress. Const: Vital Signs, click to edit/add: Vital Signs - 24 hr 05/01/24 20:40 Temperature 98.0 F Pulse Rate [Right Pulse Oximeter] 89 Respiratory Rate 18 Blood Pressure [Ri ght Upper Arm] 145/89 H Pulse Oximetry 99 Oxygen Delivery Me thod Room Air Documenting provider has reviewed patient's vital signs: yes Course Vital Signs Vital signs: Initial Vital Signs Temperature 98.0 F 05/01/24 20:40 Temperature Source Temporal Artery Scan 05/01/24 20:40 Pulse Rate 89 05/01/24 20:40 Respiratory Rate 18 05/01/24 20:40 Blood Pressure 145/89 H 05/01/24 20:40 Blood Pressure Mean 107 H 05/01/24 20:40 Blood Pressure Position Sitting 05/01/24 20:40 Pulse Oximetry 99 05/01/24 20:40 Oxygen Delivery Method Room Air 05/01/24 20:40 Vital Signs Temperature 98.0 F 05/01/24 20:40 Pulse Rate 89 05/01/24 20:40 Respiratory Rate 18 05/01/24 20:40 Blood Pressure 145/89 H 05/01/24 20:40 Pulse Oximetry 99 05/01/24 20:40 Oxygen Delivery Method Room Air 05/01/24 20:40 Temperature 98.0 F 05/01/24 20:40 Pulse Rate 89 05/01/24 20:40 Respiratory Rate 18 05/01/24 20:40 Blood Pressure 145/89 H 05/01/24 20:40 Pulse Oximetry 99 05/01/24 20:40 Oxygen Delivery Method Room Air 05/01/24 20:40 MDM - Skin/Abscess/Foreign Bdy MDM Narrative Medical decision making narrative: 1. Foreign body sensation-I was able to speak with our ENT in regards to this patient. Notes that in the majority of situations that the sensation remains but the foreign body has passed. ENT will meet the patient in the ER tomorrow morning if he still has significant symptoms. Patient seems happy with this plan. If his symptoms are improving but not entirely gone patient will be seen in the clinic on FridayMay 04. Patient is in agreement with this plan. Suggested cough lozenges Sucrets as may be being helpful. Would also recommend a dose of ibuprofen tonight. X-ray negative for any visualized foreign body. 2. Disposition-home at this time. Return tomorrow morning and ENT will come drive to [place] to evaluate this patient if symptoms are significant and persisting. Imaging Data Soft tissue neck: Attestation: I have reviewed the pertinent imaging results. My impression: I do not note any foreign body Radiologist's impression: Right-sided tonsillar symptoms. Possibly swallowed a Walleye bone. FINDINGS: There are laryngeal and thyroid cartilage calcifications with no convincing foreign body identified. There is no prevertebral soft tissue swelling. The epiglottis appears normal. Discharge Plan Discharge Clinical Impression: Foreign body sensation in throat Patient Disposition: Home, Self-Care Condition: Improved Additional Instructions: Tonight, would recommend ibuprofen for any discomfort. It would help as an anti-inflammatory as well. Sucrets cough lozenges may help as well. It has a numbing affect. If the sensation and discomfort is still present tomorrow morning please come back to the emergency room. At that time will contact Dr. Suhail Green for and ENT consult here. If you are getting better but have not entirely improved by Friday, please call to make an appointment to see him on Friday. The phone number would be [phone]. Let them know that you were seen in the ER and that Dr. Suhail Green requested to see you on his Friday clinic schedule. Return to the emergency room as needed. Prescriptions: No Action No Known Home Medications Follow Up/Referrals: Rip Kaur MD [Staff Physician] - Stand Alone Forms: [facility] Info Instructions
--- NOTE | 2024-05-01 21:05 | CRLHL7_ITS ---
For Patients: As a result of the Century Cures Act, medical imaging exams and procedure reports are released immediately into your electronic medical record. You may view this report before your referring provider. If you have questions, please contact your health care provider. INDICATION: Right-sided tonsillar symptoms. Possibly swallowed a Wal[place]e bone. FINDINGS: There are laryngeal and thyroid cartilage calcifications with no convincing foreign body identified. There is no prevertebral soft tissue swelling. The epiglottis appears normal. Dictated by Anderson Lake MD @ 05/01/2024 9:41:35 PM (Electronically Signed)
--- OUTSIDE RECORDS SUMMARY | 2024-05-01 21:14 | XMS_ITS | Clinical Summary ---
Author Organization [facility] Address [address] [place] [address] [address] [place] [address] Care Team Providers Care Riding Double Name Role Phone Pcp, No MD Primary [...] this topic Medical Devices Implanted Type Area Air Brake Worker Device Identifier Shelf Expiration Date Model / Serial / Lot Screw Quirino Acum 3.5x12mm N Co-3120 Ea1 - [id number] Implanted:Qty: 1 on 08/07/2018 by Prince Gustafson MD at [facility] Left: ANKLE ACUMED CO-3120 / / Screw Quirino Acum 2.7x26mm N Co-2726 Ea1 - [id number] Implanted:Qty: 1 on 08/07/2018 by Prince Gustafson MD at [facility] Left: ANKLE [employer]UMED CO-2726 / / Screw Lk Quirino Acum 3.5x12mm N Col-3120 Ea1 - [id number] Implanted:Qty: 2 on 08/07/2018 by Prince Gustafson MD at [facility] Left: ANKLE ACUMED COL-3120 / / Screw Lk Quirino Acum 3.5x16mm N Col-3160 Ea1 - [id number] Implanted:Qty: 1 on 08/07/2018 by Prince Gustafson MD at [facility] Left: ANKLE ACUMED COL-3160 / / Screw Lk Quirino Acum 3.5x18mm N Col-3180 Ea1 - [id number] Implanted:Qty: 1 on 08/07/2018 by Prince Gusatfson MD at [facility] Left: ANKLE ACUMED COL-3180 / / Plate Fib Lat Lk 9hl N 70-0169 Ea1 - [id number] Implanted:Qty: 1 on 08/07/2018 by Prince Gustafson MD at [facility] Left: ANKLE ACUMED 70-0169 / / Screw Cncls Acum 4x18mm N Ca-4180 Ea1 - [id number] Implanted:Qty: 1 on 08/07/2018 by Prince Gustafson MD at [facility] Left: ANKLE ACUMED CA-4180 / / Advance Directives For more information, please contact: [phone] * Full Code (Latest Code Status on File) Date Activated Date Inactivated Comments 08/07/2018 9:15 AM 08/07/2018 7:32 PM Care Teams Riding Double Relationship Specialty Start Date End Date PcpMaryann MD You have no PCP on file PCP - General 03/22/19 Provider, No Attributed, RESOURCE [address] PCP - Attributed Provider 11/19/20
[2024-05-01 21:59] VITALS: BP 132/74; PULSE 85; RESP 18; TEMP 36.7; O2SAT 99
[2024-05-01 22:02] VITALS: BP 132/74; PULSE 85; RESP 18; TEMP 36.7
== END 2024-05-01 22:02 | disposition home or self-care (01) ==
PROVIDERS: Emergency Provider Family Medicine
DX: R09.A2 Foreign body sensation, throat (principal)
CPT/HCPCS: 70360; 99283